=== PATIENT | male | born 1975 | race Asian ===

== ENCOUNTER 2024-05-18 21:03 | Emergency (ER) | payer SELFPAY ==
[~2024-05-18] VITALS: Ht 165.1 cm; Wt 74.0 kg
[2024-05-18 21:09] VITALS: BP 146/77; PULSE 102; RESP 18; TEMP 98.5; O2SAT 99
== END 2024-05-18 21:12 | disposition left against medical advice (07) ==
LOC: ER 21:03
DX: M54.50 Low back pain, unspecified (principal); Z53.21 Procedure and treatment not carried out due to patient leaving prior to being seen by health care provider